=== PATIENT | female | born 2000 | race American Indian/Alaskan Native ===

== ENCOUNTER 2021-11-14 22:18 | Emergency (ER) | payer SELFPAY ==
[2021-11-15] MEDS ORDERED: diphenhydrAMINE 50 MG/ML VIAL IM ONE (01:08)
[2021-11-15] MEDS ORDERED: HALOPERIDOL LACTATE 5 MG/1 ML INJ IM ONE (01:08)
[2021-11-15 01:48] LABS: Basophils # (Auto) 0.1 K/mm3 (0.0-0.1); Basophils % (Auto) 0.6 % (0.0-1.8); Eosinophils # (Auto) 0.1 K/mm3 (0.0-0.4); Eosinophils % (Auto) 0.6 % (0.0-4.3); Hematocrit 35.7 % (30.3-42.9); Hemoglobin 12.1 gm/dl (10.1-14.3); Lymphocytes # (Auto) 3.1 K/mm3 (1.2-5.4); Mean Corpuscular HGB Conc 34 % (30-34); Mean Corpuscular Volume 79 fl (79-97); Monocytes % (Auto) 7.8 % (0.0-7.3); Platelet Count 542 K/mm3 (140-440); Red Blood Count 4.53 M/mm3 (3.65-5.03); Red Cell Distribution Width 15.5 % (13.2-15.2)
[2021-11-15 02:05] LABS: BUN/Creatinine Ratio 14; Blood Urea Nitrogen 11 mg/dL (7-17); Calcium 9.4 mg/dL (8.4-10.2); Hemolysis Index 4
--- NOTE | 2021-11-15 05:26 | Emergency Department Report ---
ED Psych HPI - General Chief Complaint: Psych Stated Complaint: SUICIDAL IDEATIONS Time Seen by Provider: 11/15/21 01:08 Source: patient, EMS Mode of arrival: Ambulatory Limitations: No Limitations - History of Present Illness Initial Comments: Patient states she was to harm herself and she is trying to not think about hurting others. pt was accompanied by her therpaist , she had an appt with her and seems like she was having another manic episode, she is intermittenly compliant with her meds , has some suicidal ideation but no plan MD Complaint: feels depressed -: days(s) Associated Psychiatric Symptoms: suicidal ideation, racing thoughts, auditory hallucinations History of same: Yes Quality: intermittent Worsens With: none Context: not taking psychiatric Associated Symptoms: denies: denies other symptoms, confusion, headache, shortness of breath - Related Data Allergies Allergy/AdvReac Type Severity Reaction Status Date / Time No Known Allergies Allergy Unverified 11/14/21 22:26 ED Review of Systems ROS: Stated complaint: SUICIDAL IDEATIONS Other details as noted in HPI Constitutional: denies: chills, fever Eyes: denies: eye pain, eye discharge, vision change ENT: denies: ear pain, throat pain Respiratory: denies: cough, shortness of breath, wheezing Cardiovascular: denies: chest pain, palpitations Endocrine: no symptoms reported Gastrointestinal: denies: abdominal pain, nausea, diarrhea Genitourinary: denies: urgency, dysuria, discharge Musculoskeletal: denies: back pain, joint swelling, arthralgia Skin: denies: rash, lesions Neurological: denies: headache, weakness, paresthesias Psychiatric: denies: anxiety, depression Hematological/Lymphatic: denies: easy bleeding, easy bruising ED Past Medical Hx - Past Medical History Previous Medical History?: No Hx Hypertension: No ED Physical Exam - General Limitations: No Limitations General appearance: alert, anxious - Head Head exam: Present: atraumatic, normocephalic - Eye Eye exam: Present: normal appearance - ENT ENT exam: Present: mucous membranes moist - Neck Neck exam: Present: normal inspection - Respiratory Respiratory exam: Present: normal lung sounds bilaterally. Absent: respiratory distress - Cardiovascular Cardiovascular Exam: Present: regular rate, normal rhythm. Absent: systolic murmur, diastolic murmur, rubs, gallop - GI/Abdominal GI/Abdominal exam: Present: soft, normal bowel sounds - Extremities Exam Extremities exam: Present: normal inspection - Back Exam Back exam: Present: normal inspection - Neurological Exam Neurological exam: Present: alert, oriented X3 - Psychiatric Psychiatric exam: Present: anxious, manic - Skin Skin exam: Present: warm, dry, intact, normal color. Absent: rash ED Course Vital Signs 11/14/21 11/15/21 11/15/21 22:25 01:41 04:28 Temperature 98.6 F 98.1 F Pulse Rate 90 82 Respiratory 16 16 Rate Blood Pressure 137/80 129/60 [Right] O2 Sat by Pulse 98 98 98 Oximetry 11/15/21 11/15/21 11/16/21 08:37 21:00 05:47 Temperature 98.0 F 98.2 F Pulse Rate 89 80 Respiratory 18 20 22 Rate Blood Pressure 120/76 125/81 [Right] O2 Sat by Pulse 98 99 98 Oximetry 11/16/21 11/16/21 11/17/21 13:29 17:21 09:07 Temperature Pulse Rate 88 Respiratory 18 Rate Blood Pressure 130/73 [Right] O2 Sat by Pulse 98 96 95 Oximetry 11/17/21 09:08 Temperature 98.5 F Pulse Rate 76 Respiratory 18 Rate Blood Pressure 104/58 [Right] O2 Sat by Pulse 95 Oximetry ED Medical Decision Making - Lab Data Result diagrams: 11/15/21 01:25 11/15/21 01:25 Critical care attestation.: If time is entered above; I have spent that time in minutes in the direct care of this critically ill patient, excluding procedure time. ED Disposition Clinical Impression: Schizoaffective disorder Disposition: [address] [place] [address] Is pt being admited?: No Does the pt Need Aspirin: No Condition: Stable Referrals: PRIMARY CARE, [Primary Care Provider] - 3-5 Days
--- NOTE | 2021-11-15 15:08 | Consultation ---
History of Present Illness - Reason for Consult Consult date: 11/14/21 Reason for consult: MHE - History of Present Psychiatric Illness Admission Note [id number] old Afrcan [place] female was seen in the ER today. Patients states that she was brought to the ER "For so many reasons". Patient states that she was first dx last year with Bipolar because she was having delusions of being in a romantic relationship with her therapist "like we are ". Patient states that was the reason she was brought in yesterday, as she was having the same del usion of being in a romantic relationship with her current therapist. Patient states that she is currently not having any SI/HI thoughts and ate and slept good during the night. Patient would be admitted to inpatient psychiatric evaluation at this time. HPI PAST PSYCHIATRIC HISTORY: Diagnoses: Schizoaffective Disorder Suicide attempts or Self-harm behavior: Yes Prior psychiatric hospitalizations Substance Abuse history: Previous psychiatric medications tried: Outpatient treatment: PAST MEDICAL HISTORY: Family Psychiatric History None reported or documented SOCIAL HISTORY Marital Status: Single Living Arrangements: With parents Employment Status: Unemployed Access to guns/weapons: Denies Education: History of Abuse: Legal History: REVIEW OF SYSTEMS Constitutional: Negative for weight loss ENT: Negative for stridor Respiratory: Negative for cough or hemoptysis All other systems reviewed and are negative Diagnoses: Schizoaffective disorder Treatment Plan Patient will be admitted for inpatient psychiatric evaluation, medication ad justment and close monitoring The patient's behavior, mood, sleep and appetite will be closely monitored. Patient will be enrolled in individual and group therapeutic sessions and encouraged to attend. Patient will be provided with a safe and structured environment. Patient's physical health needs will be addressed by the Hospitalist. Hospitalist Consulted Labs including CBC, CMP, Lipid profile and Hemoglobin A1C ordered Social Assessment will be completed and the Senior Corporate Strategy Manager will work with patient and family to ensure a suitable and safe disposition Medication adjustment will be made as clinically indicated Usual Wellness [employer]/Preservation: - Start Trazodone 50 mg po QHS PRN The patient agreed on the treatment plan, understood the risk, benefit, alternative treatment, potential consequence of no treatment, and gave informed consent. Medications and Allergies Allergies Allergy/AdvReac Type Severity Reaction Status Date / Time No Known Allergies Allergy Unverified 11/14/21 22:26 Mental Status Exam - Vital signs Last Vital Signs Temp 98.0 F 11/15/21 08:37 Pulse 89 07/12/22 08:37 Resp 18 11/15/21 08:37 BP 120/76 11/15/21 08:37 Pulse Ox 98 11/15/21 08:37 Results Result Diagrams: 11/15/21 01:25 11/15/21 01:25 Abnormal lab results 11/15/21 11/15/21 11/15/21 Range/Units 01:25 01:25 01:25 WBC 12.9 H (4.5-11.0) K/mm3 MCH 27 L (28-32) pg RDW 15.5 H (13.2-15.2) % Plt Count 542 H (140-440) K/mm3 [place] % (Auto) 7.8 H (0.0-7.3) % [place] # (Auto) 1.0 H (0.0-0.8) K/mm3 Seg Neutrophils # 8.6 H (1.8-7.7) K/mm3 Salicylates < 0.3 L (2.8-20.0) mg/dL Acetaminophen 5.0 L (10.0-30.0) ug/mL All other labs normal.
[2021-11-15] MEDS ORDERED: traZODone 50 MG TAB PO PRN (15:12)
--- NOTE | 2021-11-15 16:25 | Event Note ---
Date: 11/15/21 Patient reevaluated today. States she feels fine and wishes to be discharged. She denies any SI or HI. She was also evaluated by mental health assurance analyst and recommended for inpatient treatment.
[2021-11-15 16:38] LABS: Bilirubin,Urine NEG (Negative); Blood,Urine SM (Negative); Color,Urine Yellow (Yellow); Protein,Urine <15 mg/dL mg/dL (Negative); Urobilinogen,Urine < 2.0 mg/dL (<2.0)
[2021-11-15 16:50] LABS: Amphetamine Screen,Urine Negative; Benzodiazepines Screen,Urine Negative; Cocaine Screen,Urine Negative; Methadone Screen,Urine Negative; Opiate Screen,Urine Negative
[2021-11-15 16:54] LABS: Amorphous Crystals,Urine 3+; Hyaline Casts,Urine 1 /LPF; Mucus,Urine FEW /HPF
[2021-11-15 16:57] LABS: HCG Qualitative,Urine Negative (Negative)
[2021-11-15 17:02] LABS: Cannabinoid Screen,Urine Positive
--- NOTE | 2021-11-16 11:29 | Event Note ---
Date: 11/16/21 I HAVE SEEN THE PATIENT MYSELF WHO IS ENJOYING HER LUNCH; PATIENT DENIES ANY SI/HI OR HALLUCINATION (TACTILE/AUDITORY/VISUAL). PATIENT STATES SHE IS 'DOING OKAY'. CURRENTLY PENDING COVID TEST AND FURTHER BEHAVIOR RECOMMENDATIONS. - BASHIR
[2021-11-16] MEDS ORDERED: LORazepam 2 MG/ML VIAL ONE (11:36)
--- NOTE | 2021-11-16 15:22 | Progress Note ---
Subjective - Reason for Consult Consult date: 11/16/21 Reason for consult: MHE - Chief Complaint Chief complaint: Subjective - DATE SEEN: 11/16/21 Patient seen today. Patient states that she is "doing okay" Asked if she was still fixated with her therapist and she denies having said that. She states she wasn't talking about her therapist but about a "Aaron Verma Jesus" Patient states she would like to "do things" to make her family happy. Patient denies any SI/HI at this time, but admits to being anxious and needing something for her anxiety. Patient also denies auditory and visual hallucinations. Vistaril prescribed. Mental Status Exam - Vital signs Last Vital Signs Temp 98.2 F 11/15/21 21:00 Pulse 80 11/15/21 21:00 Resp 22 11/16/21 05:47 BP 125/81 11/15/21 21:00 Pulse Ox 98 11/16/21 13:29
[2021-11-16] MEDS ORDERED: hydrOXYzine PAMOATE 25 MG CAP PO PRN (16:30)
[2021-11-17 09:09] VITALS: BP 104/58
== END 2021-11-17 09:46 ==
LOC: ED 22:18 → EEVIPCON 22:18 → ED 11-17 09:46
DX: F25.9 Schizoaffective disorder, unspecified (principal); Z20.822 Contact with and (suspected) exposure to COVID-19
CPT/HCPCS: 36415; 80048; 80307; 81001; 81025; 85025; 96372; 99285; J1200; J1630; U0003; 80320; 99284; G0480; J2060